=== PATIENT | male | born 1975 | race Hispanic/Latino ===

== ENCOUNTER 2022-01-07 08:48 | Emergency (ER) | payer OTHER ==
[~2022-01-07] VITALS: Ht 175.3 cm; Wt 176.0 kg
[2022-01-07 09:24] LABS: POTASSIUM 3.8 mmol/L (3.5-5.1)
[2022-01-07 09:29] LABS: ALBUMIN 3.6 g/dL (3.5-5.0); BASOPHILS % (AUTO) 0.3 % (0.0-5.0); EOSINOPHILS % (AUTO) 4.3 % (0.0-8.0); HEMATOCRIT 41.5 % (42-54); LYMPHOCYTES % (AUTO) 18.1 % (21.0-51.0); MEAN CORPUSCULAR HEMOGLOBIN 31.7 pg (27.0-33.0); MEAN CORPUSCULAR HGB CONC 34.2 g/dL (32.0-36.0); MEAN CORPUSCULAR VOLUME 92.6 fL (79-99); MONOCYTES % (AUTO) 6.5 % (3.0-13.0); NEUTROPHILS % (AUTO) 70.6 % (40.0-77.0); PLATELET COUNT (AUTO) 290 K/uL (130-400); RED BLOOD CELL COUNT(AUTO) 4.48 MIL/uL (4.50-6.20); RED CELL DISTRIBUTION WIDTH 12.1 % (11.0-15.5); TOTAL PROTEIN, SERUM 7.4 g/dL (6.0-8.3); WHITE BLOOD COUNT (AUTO) 8.6 K/uL (4.8-10.8)
[2022-01-07 09:36] LABS: APPEARANCE,URINE CLEAR (CLEAR); BILIRUBIN,URINE NEGATIVE (NEGATIVE); COLOR,URINE YELLOW (YELLOW); GLUCOSE, URINE (UA) NEGATIVE (NEGATIVE); KETONES,URINE NEGATIVE (NEGATIVE); LEUKOCYTE ESTERASE ,URINE NEGATIVE (NEGATIVE); NITRATE,URINE NEGATIVE (NEGATIVE); OCCULT BLOOD,URINE NEGATIVE (NEGATIVE); PH,URINE 5.5 (5.0-8.0); PROTEIN,URINE NEGATIVE (NEGATIVE); UROBILINOGEN,URINE 0.2 mg/dL (0.2-1.0)
[2022-01-07 09:52] LABS: B-TYPE NATRIURETIC PEPTIDE 19 pg/mL (0-100)
[2022-01-07 12:28] VITALS: BP 130/65
== END 2022-01-07 12:22 | disposition home or self-care (01) ==
LOC: EDH 08:48
DX: I45.6 Pre-excitation syndrome (principal); I48.91 Unspecified atrial fibrillation; Z98.890 Other specified postprocedural states
CPT/HCPCS: 36415; 80053; 81003; 83880; 84484; 85025; 85378; 93005

== ENCOUNTER 2022-01-08 08:23 | Emergency (ER) | payer OTHER ==
[~2022-01-08] VITALS: Ht 180.3 cm; Wt 171.5 kg
[2022-01-08 09:02] LABS: BASOPHILS % (AUTO) 0.4 % (0.0-5.0); EOSINOPHILS % (AUTO) 3.8 % (0.0-8.0); HEMATOCRIT 42.7 % (42-54); LYMPHOCYTES % (AUTO) 20.6 % (21.0-51.0); MEAN CORPUSCULAR HEMOGLOBIN 31.6 pg (27.0-33.0); MEAN CORPUSCULAR HGB CONC 33.7 g/dL (32.0-36.0); MEAN CORPUSCULAR VOLUME 93.6 fL (79-99); MONOCYTES % (AUTO) 6.5 % (3.0-13.0); NEUTROPHILS % (AUTO) 68.2 % (40.0-77.0); PLATELET COUNT (AUTO) 279 K/uL (130-400); RED BLOOD CELL COUNT(AUTO) 4.56 MIL/uL (4.50-6.20); RED CELL DISTRIBUTION WIDTH 12.2 % (11.0-15.5); WHITE BLOOD COUNT (AUTO) 7.6 K/uL (4.8-10.8)
[2022-01-08 09:11] LABS: POTASSIUM 3.7 mmol/L (3.5-5.1)
[2022-01-08 09:16] LABS: ALBUMIN 3.5 g/dL (3.5-5.0); TOTAL PROTEIN, SERUM 7.3 g/dL (6.0-8.3)
[2022-01-08 12:07] VITALS: BP 122/56
== END 2022-01-08 12:15 | disposition home or self-care (01) ==
LOC: EDH 08:23
DX: R06.00 Dyspnea, unspecified (principal); I45.6 Pre-excitation syndrome; Z20.822 Contact with and (suspected) exposure to COVID-19; I48.91 Unspecified atrial fibrillation; Z98.890 Other specified postprocedural states
CPT/HCPCS: 36415; 71045; 80053; 83880; 84484; 85025; 87426; 93005

== ENCOUNTER 2022-09-12 06:14 | Day surgery (SDC) | payer OTHER ==
[2022-09-10 09:11] LABS: BASOPHILS % (AUTO) 0.4 % (0.0-5.0); EOSINOPHILS % (AUTO) 2.9 % (0.0-8.0); HEMATOCRIT 40.2 % (42-54); MEAN CORPUSCULAR HEMOGLOBIN 30.8 pg (27.0-33.0); MEAN CORPUSCULAR HGB CONC 33.3 g/dL (32.0-36.0); MEAN CORPUSCULAR VOLUME 92.4 fL (79-99); NEUTROPHILS % (AUTO) 72.5 % (40.0-77.0); PLATELET COUNT (AUTO) 287 K/uL (130-400); RED BLOOD CELL COUNT(AUTO) 4.35 MIL/uL (4.50-6.20); RED CELL DISTRIBUTION WIDTH 12.4 % (11.0-15.5)
[2022-09-10 09:18] LABS: CREATININE 0.9 mg/dL (0.5-1.5)
[2022-09-10 09:31] LABS: INR 0.99 (0.85-1.15); PROTHROMBIN TIME 10.8 SEC (9.6-11.6)
[2022-09-10 09:40] VITALS: BP 135/79
[2022-09-12] VITALS (7 sets, daily range): BP systolic 95–131; BP diastolic 58–81
[~2022-09-12] VITALS: Ht 175.3 cm; Wt 180.5 kg
[~2022-09-12 06:14] MED LIST: 0.9%NACL 1000ML 1,000 ML IV SCH; AMIO200T68 PO; ATOR10TA69 PO; EMPA10TA PO; FURO20TA4 PO; LEVO25CA4 PO; METO-408 PO; OMEP40CA21 PO; SACU1TAB7 PO
[2022-09-12] MEDS ORDERED: MEPERIDINE-PF 25 MG/ML SYG ONE ×4 (09:06→14:44)
[2022-09-12] MEDS ORDERED: LIDOCAINE HCL 400MG/20ML VIAL ONE ×3 (09:06→10:19)
[2022-09-12] MEDS ORDERED: MIDAZOLAM HCL 1 MG/ML 2ML VIAL ONE ×3 (09:06→13:23)
[2022-09-12] MEDS ORDERED: HEPARIN 10,000 UNIT/10ML (1,000 UNIT/ML) VIAL ONE (09:06)
[2022-09-12] MEDS ORDERED: ADENOSINE 90MG VIAL IV ONE (11:29)
[2022-09-12] MEDS ORDERED: ISOPROTERENOL HCL 0.2 MG/ML AMP/VIAL/BAG ONE ×2 (11:40→11:52)
== END 2022-09-12 18:25 | disposition home or self-care (01) ==
LOC: DAH 06:14
PROVIDERS: ATTEND Internal Medicine Cardiovascular Disease
DX: I45.6 Pre-excitation syndrome (principal); I47.1 Supraventricular tachycardia; E66.01 Morbid (severe) obesity due to excess calories; G47.33 Obstructive sleep apnea (adult) (pediatric); Z87.891 Personal history of nicotine dependence; Z79.01 Long term (current) use of anticoagulants; Z79.899 Other long term (current) drug therapy; Z79.890 Hormone replacement therapy; Z72.89 Other problems related to lifestyle; Z68.44 Body mass index [BMI] 60.0-69.9, adult
CPT/HCPCS: 80048; 85025; 85610; 85730; 36415; 93005; 93653; 93623; 82948 ×2; C1894 ×6; C1732 ×2; C1730 ×3; C1893; A4649 ×2; J3490 ×5; J7030; J1644 ×3; J2250 ×2; J2175 ×3; J0153; A4215; A4335; A4222; A4221; A4663; A4216; A4606; A4223 ×3; 99156; 99157

== ENCOUNTER 2022-09-22 23:29 | Emergency (ER) | payer OTHER ==
[~2022-09-22] VITALS: Ht 175.3 cm; Wt 184.6 kg
[~2022-09-22 23:29] MED LIST changes: -0.9%NACL 1000ML 1,000 ML IV SCH
[2022-09-23 00:08] LABS: BASOPHILS % (AUTO) 0.2 % (0.0-5.0); EOSINOPHILS % (AUTO) 3.3 % (0.0-8.0); HEMATOCRIT 39.6 % (42-54); MEAN CORPUSCULAR HEMOGLOBIN 30.5 pg (27.0-33.0); MEAN CORPUSCULAR HGB CONC 33.8 g/dL (32.0-36.0); MEAN CORPUSCULAR VOLUME 90.2 fL (79-99); MONOCYTES % (AUTO) 8.6 % (3.0-13.0); NEUTROPHILS % (AUTO) 72.6 % (40.0-77.0); PLATELET COUNT (AUTO) 308 K/uL (130-400); RED BLOOD CELL COUNT(AUTO) 4.39 MIL/uL (4.50-6.20); RED CELL DISTRIBUTION WIDTH 12.2 % (11.0-15.5); WHITE BLOOD COUNT (AUTO) 9.8 K/uL (4.8-10.8)
[2022-09-23 00:17] LABS: POTASSIUM 3.7 mmol/L (3.5-5.1)
[2022-09-23 00:20] LABS: INR 0.96 (0.85-1.15); PROTHROMBIN TIME 10.5 SEC (9.6-11.6)
[2022-09-23 00:21] LABS: ALBUMIN 3.9 g/dL (3.5-5.0); TOTAL PROTEIN, SERUM 7.6 g/dL (6.0-8.3)
[2022-09-23 00:22] LABS: PARTIAL THROMBOPLASTIN TIME 29.4 SEC (26.3-35.5)
[2022-09-23 00:35] LABS: B-TYPE NATRIURETIC PEPTIDE 27 pg/mL (0-100)
[2022-09-23 01:48] LABS: APPEARANCE,URINE CLEAR (CLEAR); BILIRUBIN,URINE NEGATIVE (NEGATIVE); COLOR,URINE LIGHT-YELLOW (YELLOW); GLUCOSE, URINE (UA) >=1000 mg/dL (NEGATIVE); KETONES,URINE NEGATIVE (NEGATIVE); LEUKOCYTE ESTERASE ,URINE NEGATIVE Leu/uL (NEGATIVE); NITRATE,URINE NEGATIVE (NEGATIVE); OCCULT BLOOD,URINE NEGATIVE (NEGATIVE); PH,URINE 5.5 (5.0-8.0); PROTEIN,URINE NEGATIVE (NEGATIVE); UROBILINOGEN,URINE 0.2 mg/dL (0.2-1.0)
[2022-09-23 01:51] LABS: MUCUS,URINE RARE LPF (None Seen); RBC,URINE 0-1 /HPF (0-1)
[2022-09-23 01:56] VITALS: BP 126/88
== END 2022-09-23 02:19 | disposition home or self-care (01) ==
LOC: EDH 23:29
DX: I45.6 Pre-excitation syndrome (principal); R07.89 Other chest pain; E11.9 Type 2 diabetes mellitus without complications; E03.9 Hypothyroidism, unspecified; Z59.00 Homelessness unspecified
CPT/HCPCS: 36415; 71045; 80053; 81001; 82550; 83880; 84484; 85025; 85610; 85730; 93005

== ENCOUNTER 2022-12-26 07:55 | Day surgery (SDC) | payer OTHER ==
[2022-12-24 12:11] LABS: BASOPHILS # (AUTO) 0.03 K/uL (0.00-0.20); BASOPHILS % (AUTO) 0.4 % (0.0-5.0); EOSINOPHILS % (AUTO) 4.4 % (0.0-8.0); HEMATOCRIT 38.5 % (42-54); IMMATURE GRANULOCYTE ABSOLUTE 0.02 K/uL (0-1); LYMPHOCYTES # (AUTO) 1.4 K/uL (1.0-4.8); LYMPHOCYTES % (AUTO) 20.1 % (21.0-51.0); MEAN CORPUSCULAR HEMOGLOBIN 29.8 pg (27.0-33.0); MEAN CORPUSCULAR VOLUME 87.5 fL (79-99); MONOCYTES # (AUTO) 0.5 K/uL (0.1-1.0); MONOCYTES % (AUTO) 6.8 % (3.0-13.0); NEUTROPHILS # (AUTO) 4.7 K/uL (1.8-7.7); PLATELET COUNT (AUTO) 246 K/uL (130-400); RED CELL DISTRIBUTION WIDTH 11.9 % (11.0-15.5); WHITE BLOOD COUNT (AUTO) 6.9 K/uL (4.8-10.8)
[2022-12-24 12:21] LABS: INR 0.94 (0.85-1.15)
[2022-12-24 12:23] LABS: PARTIAL THROMBOPLASTIN TIME 30.4 SEC (26.3-35.5)
[2022-12-24 12:45] LABS: CREATININE 0.9 mg/dL (0.5-1.5); POTASSIUM 3.9 mmol/L (3.5-5.1)
[2022-12-24 14:03] VITALS: BP 146/80; PULSE 65; RESP 18
[2022-12-26] VITALS (21 sets, daily range): BP systolic 130–172; BP diastolic 63–101; PULSE 78–102; RESP 11–24
[~2022-12-26] VITALS: Ht 180.3 cm; Wt 194.8 kg
[~2022-12-26 07:55] MED LIST changes: +ALBU90AE2 IH; -AMIO200T68 PO; +DOCU100C33 PO; -EMPA10TA PO; -FURO20TA4 PO; +LISI20TA24 PO; +MELO-108 PO; -METO-408 PO; +METO-409 PO; -SACU1TAB7 PO
[2022-12-26] MEDS ORDERED: 0.9%NACL 1000ML 1,000 ML IV ONE (08:58)
[2022-12-26] MEDS ORDERED: PROPOFOL 10 MG/ML 20ML VIAL IV ONE ×2 (11:24→11:39)
[2022-12-26] MEDS ORDERED: MIDAZOLAM HCL 1 MG/ML 2ML VIAL ONE ×2 (11:24→17:46)
[2022-12-26] MEDS ORDERED: FENTANYL CITRATE PF 50 MCG/1 ML 5ML AMP IV ONE (11:24)
[2022-12-26] MEDS ORDERED: HEPARIN 10,000 UNIT/10ML (1,000 UNIT/ML) VIAL ONE (11:25)
[2022-12-26] MEDS ORDERED: LIDOCAINE HCL 1% MDV 50ML VIAL ONE (11:25)
[2022-12-26] MEDS ORDERED: LIDOCAINE HCL 1% 10 ML VIAL ONE (11:39)
[2022-12-26] MEDS ORDERED: ROCURONIUM 10MG/1ML SYR 10 MG/ML ML ONE ×2 (11:57→15:40)
[2022-12-26] MEDS ORDERED: PHENYLEPHRINE HCL 10 MG/ML 1ML VIAL IV ONE ×2 (12:24→16:07)
[2022-12-26] MEDS ORDERED: ADENOSINE 90MG VIAL IV ONE (13:38)
[2022-12-26] MEDS ORDERED: ISOPROTERENOL HCL 0.2 MG/ML AMP/VIAL/BAG ONE (14:04)
[2022-12-26] MEDS ORDERED: VERAPAMIL HCL 2.5 MG/ML VIAL ONE ×2 (14:21→15:04)
[2022-12-26] MEDS ORDERED: FENTANYL CITRATE PF 50 MCG/1 ML 2ML VIAL ONE ×5 (14:27→17:15)
[2022-12-26 16:32] LABS: ABG BASE EXCESS -0.9 mmol/L (-2.0-3.0); ABG HCO3 24.4 mmol/L (21.0-28.0); ABG OXYGEN SATURATION 99.3 % (95.0-99.0); ABG PCO2 43 mmHg (35-48); ABG PH 7.373 (7.35-7.450); CARBON MONOXIDE 0.6; HHb 0.7; PO2, ARTERIAL BG 301.8 mmHg (83.0-108.0); VENT MODE, BG OR VENT (ROOM AIR)
[2022-12-26] MEDS ORDERED: SUGAMMADEX SODIUM 200 MG/2 ML VIAL IV ONE (16:55)
[2022-12-26] MEDS ORDERED: MEPERIDINE-PF 25 MG/ML SYG ONE ×2 (17:34→17:46)
== END 2022-12-26 20:35 | disposition home or self-care (01) ==
LOC: DAH 07:55
PROVIDERS: ATTEND Internal Medicine Cardiovascular Disease
DX: I45.6 Pre-excitation syndrome (principal); I47.1 Supraventricular tachycardia; E66.01 Morbid (severe) obesity due to excess calories; G47.33 Obstructive sleep apnea (adult) (pediatric); I45.10 Unspecified right bundle-branch block; Z79.899 Other long term (current) drug therapy; Z79.01 Long term (current) use of anticoagulants; Z87.891 Personal history of nicotine dependence; Z98.890 Other specified postprocedural states; Z68.44 Body mass index [BMI] 60.0-69.9, adult
CPT/HCPCS: 80048; 85025; 85610; 85730; 36415; 93005; 93653; 82947; 93623; 82435; 84132; 84295; 82803; 85018; 83605; C1732 ×2; C1730 ×3; C1893; A4649 ×2; C1766; J3010 ×6; J7030; J3490 ×5; J1644 ×2; J2250 ×2; J2704 ×2; J2175 ×2; J2371 ×2; J0153; A4215; A4222; A4221; A4663; A4216; A4606; C1894 ×7; A4223 ×3

== ENCOUNTER 2022-12-28 23:55 | Inpatient (IN) | payer OTHER ==
[~2022-12-28] VITALS: Ht 180.3 cm; Wt 189.1 kg
[2022-12-29 00:32] LABS: BASOPHILS # (AUTO) 0.03 K/uL (0.00-0.20); BASOPHILS % (AUTO) 0.4 % (0.0-5.0); EOSINOPHILS # (AUTO) 0.35 K/uL (0.00-0.70); EOSINOPHILS % (AUTO) 4.4 % (0.0-8.0); HEMATOCRIT 36.4 % (42-54); IMMATURE GRANULOCYTE ABSOLUTE 0.01 K/uL (0-1); LYMPHOCYTES # (AUTO) 1.8 K/uL (1.0-4.8); MEAN CORPUSCULAR HEMOGLOBIN 30.1 pg (27.0-33.0); MEAN CORPUSCULAR HGB CONC 34.1 g/dL (32.0-36.0); MEAN CORPUSCULAR VOLUME 88.3 fL (79-99); MONOCYTES # (AUTO) 0.5 K/uL (0.1-1.0); MONOCYTES % (AUTO) 6.8 % (3.0-13.0); NEUTROPHILS # (AUTO) 5.2 K/uL (1.8-7.7); NEUTROPHILS % (AUTO) 65.3 % (40.0-77.0); PLATELET COUNT (AUTO) 226 K/uL (130-400); RED BLOOD CELL COUNT(AUTO) 4.12 MIL/uL (4.50-6.20); RED CELL DISTRIBUTION WIDTH 11.9 % (11.0-15.5); WHITE BLOOD COUNT (AUTO) 7.9 K/uL (4.8-10.8)
[2022-12-29 00:41] LABS: POTASSIUM 3.7 mmol/L (3.5-5.1)
[2022-12-29 00:48] LABS: RAPID GROUP A STREP negative (NEGATIVE); SARS-CoV-2, RNA, NAAT NEGATIVE SARS CoV-2 (NEGATIVE)
[2022-12-29 00:57] LABS: INFLUENZA TYPE A Negative For Type A (NEGATIVE); INFLUENZA TYPE B Negative For Type B (NEGATIVE)
[2022-12-29 01:01] LABS: B-TYPE NATRIURETIC PEPTIDE 60 pg/mL (0-100)
[2022-12-29 01:05] LABS: ALBUMIN 3.4 g/dL (3.5-5.0); BILIRUBIN,TOTAL 0.3 mg/dL (0.2-1.0); TOTAL PROTEIN, SERUM 7.1 g/dL (6.0-8.3)
[2022-12-29 01:23] LABS: INR < 0.93 (0.85-1.15); PROTHROMBIN TIME 10.8 SEC (9.6-11.6)
[2022-12-29 01:25] LABS: PARTIAL THROMBOPLASTIN TIME 28.5 SEC (26.3-35.5)
[2022-12-29 01:29] VITALS: PULSE 65; RESP 14
[2022-12-29] MEDS ORDERED: LABETALOL 20MG VIAL IV ONE (01:30)
[2022-12-29] MEDS ORDERED: IPRATROPIUM/ALBUTEROL SULFATE 3 ML SOLUTION IH ONE (01:30)
[2022-12-29 02:25] LABS: APPEARANCE,URINE CLEAR (CLEAR); BILIRUBIN,URINE NEGATIVE (NEGATIVE); COLOR,URINE LIGHT-YELLOW (YELLOW); GLUCOSE, URINE (UA) NEGATIVE (NEGATIVE); KETONES,URINE NEGATIVE (NEGATIVE); LEUKOCYTE ESTERASE ,URINE NEGATIVE Leu/uL (NEGATIVE); NITRATE,URINE NEGATIVE (NEGATIVE); OCCULT BLOOD,URINE NEGATIVE (NEGATIVE); PH,URINE 5.5 (5.0-8.0); PROTEIN,URINE NEGATIVE (NEGATIVE); UROBILINOGEN,URINE 0.2 mg/dL (0.2-1.0)
[2022-12-29 02:26] LABS: ADD UA MICROSCOPIC NO
[2022-12-29] MEDS ORDERED: ONDANSETRON 4MG INJ IV PRN (02:30)
[2022-12-29] MEDS ORDERED: ASPIRIN 81MG CHEW TAB PO ONE (02:30)
[2022-12-29] MEDS ORDERED: NITROGLYCERIN 0.4 MG SL TAB SL PRN (02:30)
[2022-12-29] MEDS ORDERED: MORPHINE 2 MG SYG IV PRN (02:30)
[2022-12-29] MEDS: LACTATED RINGERS 1000ML 1,000 ML IV SCH ×2 (02:55→16:07)
[2022-12-29 03:31] LABS: HEMOGLOBIN A1C 6.2 % (4.0-6.0)
[2022-12-29] MEDS: CLOPIDOGREL 75MG TAB PO SCH (07:51)
[2022-12-29] MEDS: FAMOTIDINE 20MG TAB PO SCH ×2 (07:51→20:30)
[2022-12-29] MEDS: ASPIRIN 81MG CHEW TAB PO SCH (07:52)
[2022-12-29] MEDS: ENOXAPARIN SODIUM 40 MG/0.4 ML SYRINGE SQ SCH (07:52)
[2022-12-29] MEDS: MORPHINE 4 MG SYG IV PRN ×2 (16:56→22:17)
[2022-12-29 18:31] VITALS: BP 147/84; PULSE 77; RESP 16
[2022-12-29 18:44] VITALS: O2SAT 98
[2022-12-29] MEDS ORDERED: FLUT1BLS11 IH (19:41)
[2022-12-29 19:58] VITALS: BP 135/70; PULSE 64; RESP 18
[2022-12-29 21:00] VITALS: O2SAT 99
[2022-12-30] VITALS (11 sets, daily range): BP systolic 128–155; BP diastolic 62–91; PULSE 57–80; RESP 18–20; O2SAT 94–100
[2022-12-30 04:03] LABS: BASOPHILS # (AUTO) 0.01 K/uL (0.00-0.20); BASOPHILS % (AUTO) 0.1 % (0.0-5.0); EOSINOPHILS # (AUTO) 0.27 K/uL (0.00-0.70); EOSINOPHILS % (AUTO) 3.2 % (0.0-8.0); HEMATOCRIT 34.9 % (42-54); IMMATURE GRANULOCYTE ABSOLUTE 0.03 K/uL (0-1); LYMPHOCYTES # (AUTO) 1.5 K/uL (1.0-4.8); LYMPHOCYTES % (AUTO) 17.5 % (21.0-51.0); MEAN CORPUSCULAR HEMOGLOBIN 29.9 pg (27.0-33.0); MEAN CORPUSCULAR HGB CONC 33.8 g/dL (32.0-36.0); MEAN CORPUSCULAR VOLUME 88.6 fL (79-99); MONOCYTES # (AUTO) 0.7 K/uL (0.1-1.0); MONOCYTES % (AUTO) 8.1 % (3.0-13.0); NEUTROPHILS % (AUTO) 70.7 % (40.0-77.0); PLATELET COUNT (AUTO) 224 K/uL (130-400); RED BLOOD CELL COUNT(AUTO) 3.94 MIL/uL (4.50-6.20); RED CELL DISTRIBUTION WIDTH 11.9 % (11.0-15.5); WHITE BLOOD COUNT (AUTO) 8.5 K/uL (4.8-10.8)
[2022-12-30 04:15] LABS: CREATININE 0.9 mg/dL (0.5-1.5); MAGNESIUM 1.8 mg/dL (1.80-2.40); PHOSPHORUS 4.1 mg/dL (2.5-4.9); POTASSIUM 3.4 mmol/L (3.5-5.1)
[2022-12-30] MEDS: LACTATED RINGERS 1000ML 1,000 ML IV SCH (05:10)
[2022-12-30] MEDS ORDERED: ASPI-1005 PO (08:39)
[2022-12-30] MEDS ORDERED: METO-391 PO (08:39)
[2022-12-30] MEDS ORDERED: CLOP-31 PO (08:39)
[2022-12-30] MEDS: ASPIRIN 81MG CHEW TAB PO SCH (10:10)
[2022-12-30] MEDS: FAMOTIDINE 20MG TAB PO SCH ×2 (10:10→20:15)
[2022-12-30] MEDS: ENOXAPARIN SODIUM 40 MG/0.4 ML SYRINGE SQ SCH (10:11)
[2022-12-30] MEDS: CLOPIDOGREL 75MG TAB PO SCH (10:11)
[2022-12-30] MEDS ORDERED: KCL 20 MEQ ERTAB PO ONE (10:30)
[2022-12-30] MEDS ORDERED: POTASSIUM CHLORIDE 10% ELIXIR 20 MEQ/15 ML UDCUP PO PRN (11:30)
[2022-12-30] MEDS ORDERED: POTASSIUM CHLORIDE 20MEQ/100ML 100 ML IV PRN (11:30)
[2022-12-30] MEDS ORDERED: 0.9%NACL 50ML IV SCH (12:00)
[2022-12-30] MEDS ORDERED: VANCOMYCIN KIT 1 GM/250 ML IV.KIT IV SCH ×2 (12:00)
[2022-12-30] MEDS: ACETAMINOPHEN 325 MG TAB PO PRN ×3 (12:19→23:01)
[2022-12-30] MEDS ORDERED: VANCOMYCIN PROTOCOL PER PHARMACY IV SCH (12:30)
[2022-12-30] MEDS ORDERED: VANCOMYCIN 2GM/500 ML BAG 500 ML IV ONE (12:30)
[2022-12-30] MEDS ORDERED: ZOSYN 3.375GM +NS 50ML IVPB SCH (14:00)
[2022-12-30] MEDS: MAGNESIUM 2GM PREMIX 50ML 50 ML IV PRN (17:18)
[2022-12-30] MEDS ORDERED: HONEY 1 APPL/ML TUBE TP SCH (17:30)
[2022-12-30 18:07] LABS: AMPHET/METH SCREEN,URINE NEGATIVE (NEGATIVE); BARBITURATE SCREEN, URINE NEGATIVE (NEGATIVE); BENZODIAZEPINES SCREEN,URINE NEGATIVE (NEGATIVE); CANNABINOID SCREEN,URINE NEGATIVE (NEGATIVE); COCAINE SCREEN,URINE NEGATIVE (NEGATIVE); OPIATE SCREEN,URINE NEGATIVE (NEGATIVE); PHENCYCLIDINE SCREEN,URINE NEGATIVE (NEGATIVE)
[2022-12-31] VITALS (7 sets, daily range): BP systolic 142–154; BP diastolic 85–98; PULSE 70–76; RESP 18–20; O2SAT 97–99
[2022-12-31 03:50] LABS: MEAN CORPUSCULAR HEMOGLOBIN 29.8 pg (27.0-33.0); MEAN CORPUSCULAR HGB CONC 33.4 g/dL (32.0-36.0); MEAN CORPUSCULAR VOLUME 89.1 fL (79-99); RED BLOOD CELL COUNT(AUTO) 3.93 MIL/uL (4.50-6.20); RED CELL DISTRIBUTION WIDTH 11.9 % (11.0-15.5); WHITE BLOOD COUNT (AUTO) 7.7 K/uL (4.8-10.8)
[2022-12-31 04:11] LABS: ALBUMIN 3.2 g/dL (3.5-5.0); BILIRUBIN,TOTAL 0.6 mg/dL (0.2-1.0); CREATININE 0.9 mg/dL (0.5-1.5); MAGNESIUM 2.1 mg/dL (1.80-2.40); POTASSIUM 3.5 mmol/L (3.5-5.1)
[2022-12-31] MEDS: KCL 20 MEQ ERTAB PO PRN ×2 (05:13→06:26)
[2022-12-31] MEDS: VANCOMYCIN 1G/250ML KIT 250 ML IV SCH ×2 (06:06→15:23)
[2022-12-31] MEDS: ACETAMINOPHEN 325 MG TAB PO PRN ×2 (07:05→15:27)
[2022-12-31] MEDS: CLOPIDOGREL 75MG TAB PO SCH (08:21)
[2022-12-31] MEDS: ASPIRIN 81MG CHEW TAB PO SCH (08:21)
[2022-12-31] MEDS: FAMOTIDINE 20MG TAB PO SCH ×2 (08:23→21:45)
[2022-12-31] MEDS: ENOXAPARIN SODIUM 40 MG/0.4 ML SYRINGE SQ SCH (08:23)
[2022-12-31] MEDS ORDERED: KCL 20 MEQ ERTAB PO ONE (08:30)
[2023-01-01 00:32] VITALS: BP 151/96; PULSE 70; RESP 18
[2023-01-01] MEDS: VANCOMYCIN 1.5 GM/250 ML BAG 250 ML IV SCH ×3 (01:29→15:33)
[2023-01-01] MEDS: ACETAMINOPHEN 325 MG TAB PO PRN ×2 (03:22→11:33)
[2023-01-01 03:47] VITALS: BP 157/99; PULSE 71; RESP 16
[2023-01-01 05:43] LABS: HEMATOCRIT 37.3 % (42-54); MEAN CORPUSCULAR HEMOGLOBIN 29.6 pg (27.0-33.0); MEAN CORPUSCULAR HGB CONC 33.2 g/dL (32.0-36.0); RED BLOOD CELL COUNT(AUTO) 4.19 MIL/uL (4.50-6.20); WHITE BLOOD COUNT (AUTO) 8.2 K/uL (4.8-10.8)
[2023-01-01 06:06] LABS: ALBUMIN 3.4 g/dL (3.5-5.0); BILIRUBIN,TOTAL 0.6 mg/dL (0.2-1.0); CREATININE 0.8 mg/dL (0.5-1.5); MAGNESIUM 1.9 mg/dL (1.80-2.40); POTASSIUM 4.2 mmol/L (3.5-5.1); TOTAL PROTEIN, SERUM 7.3 g/dL (6.0-8.3)
[2023-01-01] MEDS ORDERED: LEVOTHYROXINE 25 MCG TABLET PO SCH (06:30)
[2023-01-01 07:00] VITALS: BP 138/82; PULSE 64; RESP 22
[2023-01-01 08:00] VITALS: O2SAT 96
[2023-01-01] MEDS: ASPIRIN 81MG CHEW TAB PO SCH (08:31)
[2023-01-01] MEDS: FAMOTIDINE 20MG TAB PO SCH (08:31)
[2023-01-01] MEDS: CLOPIDOGREL 75MG TAB PO SCH (08:31)
[2023-01-01] MEDS: ENOXAPARIN SODIUM 40 MG/0.4 ML SYRINGE SQ SCH (08:33)
[2023-01-01] MEDS ORDERED: NON-FORMULARY MEDICATION 1 EACH (Levothyroxine Sodium (Levothyroxine) 25 MCG) PO SCH (09:00)
[2023-01-01] MEDS: MAGNESIUM 2GM PREMIX 50ML 50 ML IV PRN (10:23)
[2023-01-01 11:00] VITALS: BP 131/48; PULSE 85; RESP 22
[2023-01-01 16:00] VITALS: BP 123/77; PULSE 65; RESP 20
== END 2023-01-01 18:02 | disposition home or self-care (01) | DRG 602 ==
LOC: EDH 23:55 → EDHIP 12-29 02:03 → 2DH 12-29 17:57
PROVIDERS: ADMIT Internal Medicine; ATTEND Internal Medicine
PROC: 5A09357 Assistance with Respiratory Ventilation, Less than 24 Consecutive Hours, Continuous Positive Airway Pressure (ICD-10-PCS; principal; 2022-12-30)
DX: L03.116 Cellulitis of left lower limb (principal); J96.20 Acute and chronic respiratory failure, unspecified whether with hypoxia or hypercapnia; I24.9 Acute ischemic heart disease, unspecified; E44.1 Mild protein-calorie malnutrition; M62.82 Rhabdomyolysis; L97.229 Non-pressure chronic ulcer of left calf with unspecified severity; Z68.43 Body mass index [BMI] 50.0-59.9, adult; I45.6 Pre-excitation syndrome; Z20.822 Contact with and (suspected) exposure to COVID-19; E66.01 Morbid (severe) obesity due to excess calories; R77.8 Other specified abnormalities of plasma proteins; M10.9 Gout, unspecified; I10 Essential (primary) hypertension; G47.33 Obstructive sleep apnea (adult) (pediatric); E03.9 Hypothyroidism, unspecified; E11.9 Type 2 diabetes mellitus without complications; E78.00 Pure hypercholesterolemia, unspecified; F17.210 Nicotine dependence, cigarettes, uncomplicated; F41.9 Anxiety disorder, unspecified; Z79.82 Long term (current) use of aspirin; Z83.3 Family history of diabetes mellitus; Z95.1 Presence of aortocoronary bypass graft; Z99.2 Dependence on renal dialysis
CPT/HCPCS: 36415; 71045; 80048; 80053; 80202; 80305; 81003; 82550; 82948; 83036; 83735; 83880; 84100; 84439; 84443; 84481; 84484; 85025; 85027; 85610; 85730; 86701; 87076; 87390; 87635; 87804; 87880; 93005; 93306; 93971; 94640; C9803; G0378; J1650; J2270; J3370; J3475

== ENCOUNTER 2023-01-17 18:24 | Emergency (ER) | payer OTHER ==
[~2023-01-17] VITALS: Ht 180.3 cm; Wt 195.0 kg
[~2023-01-17 18:24] MED LIST changes: +ASPI-1005 PO; +CLOP-31 PO; +FLUT1BLS11 IH; +METO-391 PO; -METO-409 PO
[2023-01-17 19:01] LABS: BASOPHILS # (AUTO) 0.01 K/uL (0.00-0.20); BASOPHILS % (AUTO) 0.1 % (0.0-5.0); EOSINOPHILS # (AUTO) 0.07 K/uL (0.00-0.70); HEMATOCRIT 37.7 % (42-54); IMMATURE GRANULOCYTE ABSOLUTE 0.02 K/uL (0-1); LYMPHOCYTES # (AUTO) 0.4 K/uL (1.0-4.8); LYMPHOCYTES % (AUTO) 6.2 % (21.0-51.0); MEAN CORPUSCULAR HEMOGLOBIN 29.8 pg (27.0-33.0); MEAN CORPUSCULAR HGB CONC 34.5 g/dL (32.0-36.0); MEAN CORPUSCULAR VOLUME 86.5 fL (79-99); MONOCYTES # (AUTO) 0.3 K/uL (0.1-1.0); MONOCYTES % (AUTO) 3.8 % (3.0-13.0); NEUTROPHILS # (AUTO) 6.2 K/uL (1.8-7.7); NEUTROPHILS % (AUTO) 88.6 % (40.0-77.0); PLATELET COUNT (AUTO) 245 K/uL (130-400); RED BLOOD CELL COUNT(AUTO) 4.36 MIL/uL (4.50-6.20); WHITE BLOOD COUNT (AUTO) 7.1 K/uL (4.8-10.8)
[2023-01-17 19:14] LABS: CREATININE 0.7 mg/dL (0.5-1.5); POTASSIUM 3.9 mmol/L (3.5-5.1)
[2023-01-17 19:19] LABS: ALBUMIN 3.8 g/dL (3.5-5.0); BILIRUBIN,TOTAL 0.8 mg/dL (0.2-1.0); TOTAL PROTEIN, SERUM 7.6 g/dL (6.0-8.3)
[2023-01-17 19:25] LABS: B-TYPE NATRIURETIC PEPTIDE 7 pg/mL (0-100)
[2023-01-17] MEDS ORDERED: ONDANSETRON ODT 4MG TAB SL ONE (19:30)
[2023-01-17] MEDS ORDERED: IBUPROFEN 600 MG TABLET PO ONE (19:30)
[2023-01-17 19:35] LABS: INR 0.94 (0.85-1.15)
[2023-01-17 19:51] VITALS: TEMP 98.9
[2023-01-17 19:54] VITALS: BP 126/51; PULSE 91; RESP 16; O2SAT 96
[2023-01-17 20:12] LABS: SARS-CoV-2, RNA, NAAT NEGATIVE SARS CoV-2 (NEGATIVE)
[2023-01-17 20:14] LABS: INFLUENZA TYPE A Negative For Type A (NEGATIVE); INFLUENZA TYPE B Negative For Type B (NEGATIVE)
[2023-01-17] MEDS ORDERED: ONDA4TAB10 PO (20:21)
== END 2023-01-17 20:32 | disposition home or self-care (01) ==
LOC: EDH 18:24
DX: R07.89 Other chest pain (principal); F41.9 Anxiety disorder, unspecified; R11.10 Vomiting, unspecified; E11.9 Type 2 diabetes mellitus without complications; E78.00 Pure hypercholesterolemia, unspecified; I10 Essential (primary) hypertension; Z79.02 Long term (current) use of antithrombotics/antiplatelets; Z79.1 Long term (current) use of non-steroidal anti-inflammatories (NSAID); Z79.51 Long term (current) use of inhaled steroids; Z79.82 Long term (current) use of aspirin; Z79.899 Other long term (current) drug therapy; Z95.1 Presence of aortocoronary bypass graft; Z20.822 Contact with and (suspected) exposure to COVID-19
CPT/HCPCS: 99285; 71045; 87635; 82550; 84484; 80053; 83880; 85025; 85610; 87040 ×2; 87804 ×2; 83605; 36415; 93005; C9803

== ENCOUNTER → 2023-02-19 | Outpatient (CLI) | payer OTHER ==
[~2023-02-19] MED LIST changes: +EMPA10TA PO; +ESCI-8 PO; +HONE15GE TP; -MELO-108 PO; -METO-391 PO; +METO50TA9 PO; +PROP225C8 PO; +TRAZ-185 PO
[2023-02-19 12:16] LABS: BASOPHILS # (AUTO) 0.03 K/uL (0.00-0.20); BASOPHILS % (AUTO) 0.4 % (0.0-5.0); EOSINOPHILS % (AUTO) 2.7 % (0.0-8.0); HEMATOCRIT 41.6 % (42-54); IMMATURE GRANULOCYTE ABSOLUTE 0.02 K/uL (0-1); LYMPHOCYTES # (AUTO) 1.5 K/uL (1.0-4.8); LYMPHOCYTES % (AUTO) 20.5 % (21.0-51.0); MEAN CORPUSCULAR HEMOGLOBIN 29.4 pg (27.0-33.0); MEAN CORPUSCULAR HGB CONC 32.9 g/dL (32.0-36.0); MEAN CORPUSCULAR VOLUME 89.3 fL (79-99); MONOCYTES # (AUTO) 0.5 K/uL (0.1-1.0); MONOCYTES % (AUTO) 6.3 % (3.0-13.0); NEUTROPHILS # (AUTO) 5.2 K/uL (1.8-7.7); NEUTROPHILS % (AUTO) 69.8 % (40.0-77.0); PLATELET COUNT (AUTO) 323 K/uL (130-400); RED BLOOD CELL COUNT(AUTO) 4.66 MIL/uL (4.50-6.20); RED CELL DISTRIBUTION WIDTH 12.8 % (11.0-15.5); WHITE BLOOD COUNT (AUTO) 7.5 K/uL (4.8-10.8)
[2023-02-19 12:29] LABS: INR 0.94 (0.85-1.15); PROTHROMBIN TIME 10.9 SEC (9.6-11.6)
[2023-02-19 12:30] LABS: PARTIAL THROMBOPLASTIN TIME 30.8 SEC (26.3-35.5)
== END | disposition home or self-care (01) ==
LOC: LAB 11:13
PROVIDERS: ATTEND Internal Medicine Cardiovascular Disease
DX: I48.0 Paroxysmal atrial fibrillation (principal)
CPT/HCPCS: 36415; 85025; 85610; 85730

== ENCOUNTER → 2023-04-25 | Outpatient (CLI) | payer OTHER | END | disposition home or self-care (01) | LOC: RAH 10:21 | PROVIDERS: ATTEND Internal Medicine Cardiovascular Disease | DX: R59.9 Enlarged lymph nodes, unspecified (principal); R10.2 Pelvic and perineal pain | CPT/HCPCS: 76882 ==

== ENCOUNTER → 2023-06-16 | Outpatient (CLI) | payer OTHER | END | disposition home or self-care (01) | LOC: RAH 09:05 | PROVIDERS: ATTEND Internal Medicine | DX: R59.0 Localized enlarged lymph nodes (principal) | CPT/HCPCS: 76882 ==